=== PATIENT | female | born 1955 | race American Indian/Alaskan Native ===

== ENCOUNTER 2017-10-05 21:08 | Emergency (ER) | payer MEDICARE ==
[2017-10-05 23:49] LABS: Basophils % (Auto) 0.3 % (0.0-1.8); Eosinophils % (Auto) 0.8 % (0.0-4.3); Hemoglobin 14.5 gm/dl (10.1-14.3); Lymphocytes # (Auto) 1.3 K/mm3 (1.2-5.4); Lymphocytes % (Auto) 32.7 % (13.4-35.0); Mean Corpuscular HGB Conc 33 % (30-34); Mean Corpuscular Hemoglobin 29 pg (28-32); Mean Corpuscular Volume 89 fl (79-97); Monocytes # (Auto) 0.3 K/mm3 (0.0-0.8); Monocytes % (Auto) 7.5 % (0.0-7.3); Platelet Count 167 K/mm3 (140-440); Red Blood Count 4.97 M/mm3 (3.65-5.03); Red Cell Distribution Width 14.2 % (13.2-15.2)
[2017-10-06 00:11] LABS: BUN/Creatinine Ratio 12; Blood Urea Nitrogen 6 mg/dL (7-17); Calcium 8.9 mg/dL (8.4-10.2); Hemolysis Index 24
--- NOTE | 2017-10-06 00:52 | XRay Report ---
FINAL REPORT PROCEDURE: XR CHEST ROUTINE 2V TECHNIQUE: PA and lateral chest radiographs were obtained. CPT 84016 HISTORY: Shortness of breath COMPARISON: No prior studies are available for comparison. FINDINGS: Heart: Normal. Mediastinum/Vessels: Normal. Lungs/Pleural space: Normal. Bony thorax: No acute osseous abnormality. Other: IMPRESSION: Normal examination.
[2017-10-06] MEDS ORDERED: ASPIRIN PO ONE (18:20)
[2017-10-06] MEDS ORDERED: NITRO-BID 2% TP ONE (18:20)
--- NOTE | 2017-10-06 18:23 | Emergency Department Report ---
HPI - General Chief Complaint: Dyspnea/Respdistress Time Seen by Provider: 10/06/17 17:08 - [facility] HPI: Room 4 The patient is a 62-year-old female presenting with a chief complaint of chest pain. The patient states her symptoms began yesterday with intermittent right- sided chest pain described as sharp in nature. Patient describes shortness of breath, nausea without vomiting and diaphoresis associated with chest pain. The patient states her last stress test was approximately 5 years ago but she does not recall having a cardiac catheterization. The patient states she was on a bus yesterday and felt as though she was going to pass out and this is when EMS was called. The patient states aspirin helped her chest pain. The patient also complains of a cough for the past 3 months Location: Chest, see above Duration: [See above] Quality: [See above] Severity: [See above] Modifying factors: [see above] Context: [see above] Mode of transportation: [not driving] ED Past Medical Hx - Past Medical History Previous Medical History?: Yes Hx Hypertension: Yes Hx CVA: Yes Hx Heart Attack/AMI: Yes Hx Congestive Heart Failure: Yes Hx Diabetes: Yes Hx Asthma: Yes Additional medical history: bronchitis. thyroid. high cholestrol - Surgical History Past Surgical History?: Yes Hx Cholecystectomy: Yes Hx Appendectomy: Yes Additional Surgical History: hysterectomy - Family History Family history: no significant - Social History Smoking Status: Never Smoker Substance Use Type: None - Medications Home Medications: Home Medications Medication Instructions Recorded Confirmed Last Taken Type Clindamycin [Clindamycin CAP] 300 mg PO Q8H #30 cap 08/12/16 Unknown Rx ED Review of Systems ROS: Stated complaint: FLU LIKE SX Other details as noted in HPI Constitutional: diaphoresis Respiratory: cough, shortness of breath Cardiovascular: chest pain Gastrointestinal: nausea. denies: vomiting Physical Exam - Physical Exam Vital Signs: Vital Signs 10/05/17 22:55 Temperature 98.8 F Pulse Rate 83 Respiratory 17 Rate Blood Pressure 161/101 O2 Sat by Pulse 99 Oximetry Physical Exam: GENERAL: The patient is well-developed well-nourished female lying on stretcher not appearing to be in acute distress. [] HEENT: Normocephalic. Atraumatic. Extraocular motions are intact. Patient has moist mucous membranes. NECK: Supple. Trachea midline CHEST/LUNGS: Clear to auscultation. There is no respiratory distress noted. HEART/CARDIOVASCULAR: Regular. There is no tachycardia. There is no gallop rub or murmur. ABDOMEN: Abdomen is soft, nontender. Patient has normal bowel sounds. There is no abdominal distention. SKIN: There is no rash. There is no edema. There is no diaphoresis. NEURO: The patient is awake, alert, and oriented. The patient is cooperative. The patient has normal speech MUSCULOSKELETAL:There is no evidence of acute injury. ED Course Vital Signs 10/05/17 22:55 Temperature 98.8 F Pulse Rate 83 Respiratory 17 Rate Blood Pressure 161/101 O2 Sat by Pulse 99 Oximetry ED Medical Decision Making - Lab Data Result diagrams: 10/05/17 23:08 10/05/17 23:08 Laboratory Tests 10/05/17 10/05/17 10/06/17 23:08 23:08 18:27 WBC 4.0 L RBC 4.97 Hgb 14.5 H Hct 44.0 H MCV 89 MCH 29 MCHC 33 RDW 14.2 Plt Count 167 Lymph % (Auto) 32.7 Andrews % (Auto) 7.5 H Eos % (Auto) 0.8 Baso % (Auto) 0.3 Lymph # 1.3 Andrews # 0.3 Eos # 0.0 Baso # 0.0 Seg Neutrophils % 58.7 Seg Neutrophils # 2.4 Sodium 143 Potassium 4.2 Chloride 104.1 Carbon Dioxide 25 Anion Gap 18 BUN 6 L Creatinine 0.5 L Estimated GFR > 60 BUN/Creatinine Ratio 12 Glucose 99 Calcium 8.9 Total Creatine Kinase 48 CK-MB (CK-2) 1.0 CK-MB (CK-2) Rel Index 2.0 Troponin T < 0.010 - EKG Data -: EKG Interpreted by Me EKG shows normal: sinus rhythm Rate: normal - EKG Data When compared to previous EKG there are: previous EKG unavailable Interpretation: other (no ischemic changes seen) - Radiology Data Radiology results: image reviewed (chest x-ray) interpreted by me: Chest x-ray-no focal infiltrates, no pneumothorax - Differential Diagnosis ACS, GERD, pneumonia, bronchitis, pericarditis Critical care attestation.: If time is entered above; I have spent that time in minutes in the direct care of this critically ill patient, excluding procedure time. ED Disposition Clinical Impression: Chest pain Disposition: [id number]-07 LEFT AGAINST MED ADVICE Is pt being admited?: No Does the pt Need Aspirin: No Condition: Undetermined Instructions: Chest Pain (ED) Referrals: DENIZ TOM MD [Primary Care Provider] - 3-5 Days Time of Disposition: 18:54 (patient leaving AMA)
[2017-10-06 19:28] VITALS: BP 128/80
== END 2017-10-06 18:53 | disposition left against medical advice (07) ==
LOC: ED 21:08
DX: R07.9 Chest pain, unspecified (principal); I10 Essential (primary) hypertension; I25.2 Old myocardial infarction; E11.9 Type 2 diabetes mellitus without complications
CPT/HCPCS: 36415; 71046; 80048; 82550; 82553; 84484; 85025; 93005; 93010